=== PATIENT | female | born 1960 | race Asian ===

== ENCOUNTER 2017-10-29 01:35 | Emergency (ER) | payer OTHER ==
[~2017-10-29] VITALS: Ht 165.1 cm; Wt 74.8 kg
[2017-10-29] MEDS ORDERED: ETOMIDATE (2MG/ML) 20ML VIAL IV ONE ×2 (01:39→03:30)
[2017-10-29] MEDS ORDERED: SUCCINYLCHOLINE CHLORIDE 20 MG/ML 10ML VIAL IV ONE ×2 (01:40→03:30)
[2017-10-29 02:26] LABS: Urine Bacteria MOD /hpf (None Seen); Urine Blood 2+ /uL (Negative); Urine Specific Gravity 1.029 (1.001-1.035); Urine WBC 2 /hpf (0 - 5)
[2017-10-29 02:38] LABS: Alcohol, Urine < 3.0 mg/dL (0-5); Amphetamine Screen, Urine NEGATIVE (NEGATIVE); Barbiturate Scree,Urine NEGATIVE (NEGATIVE); Benzodiazephine Screen, Urine NEGATIVE (NEGATIVE); Cannabinoid Screen, Urine NEGATIVE (NEGATIVE); Cocaine Screen, Urine NEGATIVE (NEGATIVE); Opiate Scree,Urine POSITIVE (NEGATIVE); Phencyclidine Screen, Urine NEGATIVE (NEGATIVE)
[2017-10-29 02:45] LABS: Mean Corpuscular Hemoglobin 30.4 pg (28.0-32.0); Red Blood Cells 4.36 10^6/uL (4.0-5.20)
[2017-10-29 02:47] LABS: Hematocrit 43.8 % (36.0-46.0); Hemoglobin 13.3 g/dL (12.2-16.2); Mean Corpuscular Hgb Conc. 30.3 g/dL (32.0-36.0); Mean Corpuscular Volume 100.3 fL (80.0-100.0); Platelet Count (auto) 111 10^3/uL (140-450); White Blood Cell 17.7 10^3/uL (4.4-10.8)
[2017-10-29] MEDS ORDERED: MIDAZOLAM DRIP 50 mg/50mL 50 ML IV SCH (03:06)
[2017-10-29 03:08] LABS: Basophils % (manual) 0 (0.0-2.0); Blast Cells 0; Eosinophils % (manual) 0 (0-7); Promyelocytes % 0
[2017-10-29] MEDS ORDERED: MIDAZOLAM DRIP 50 mg/50mL 50 ML IV ONE (03:14)
[2017-10-29] MEDS ORDERED: LACTATED RINGER'S 1,000 ML IV ONE (03:15)
[2017-10-29] MEDS ORDERED: LEVETIRACETAM INJ 500 MG in D5W 5% 100 ML IV ONE (03:15)
[2017-10-29] MEDS ORDERED: SODIUM CHLORIDE 0.9% 1,000 ML IV ONE ×3 (03:15→08:00)
[2017-10-29 03:25] LABS: Lactic Acid w/Reflex 16.4 mmol/L (0.4-2.0)
[2017-10-29 03:29] LABS: Albumin 1.9 g/dL (3.4-5.0); Calcium 10.4 mg/dL (8.5-10.1); Magnesium 3.8 mg/dL (1.6-2.6)
[2017-10-29 03:31] LABS: Potassium 6.2 mmol/L (3.5-5.1)
[2017-10-29] MEDS ORDERED: NOREPINEPHRINE 8 MG/250ML KIT 250 ML IV SCH (03:33)
[2017-10-29] MEDS ORDERED: NOREPINEPHRINE 8 MG/250ML KIT 250 ML IV ONE (03:35)
[2017-10-29 03:51] LABS: Total Protein 5.4 g/dL (6.4-8.2)
[2017-10-29 03:58] LABS: Band Neutrophils % (manual) 14; Lymphocytes % (manual) 32 (10.0-50.0); Metamyelocytes % 4; Monocytes % (manual) 5 (0-12); Myelocytes % 2; Reactive Lymphocytes 1
[2017-10-29] MEDS ORDERED: SODIUM BICARBONATE 8.4% INJ 50ML SYRINGE ONE ×3 (04:07→07:35)
[2017-10-29] MEDS ORDERED: SODIUM BICARBONATE 8.4 % INJ 50ML VIAL IV ONE ×5 (04:15→09:45)
[2017-10-29] MEDS ORDERED: DEXTROSE (50%) 50ML SYRG IV ONE (04:45)
[2017-10-29] MEDS ORDERED: InsuLIN REG 1unit/0.01ml Soln (100units/ml) IV ONE (04:45)
[2017-10-29] MEDS ORDERED: CALCIUM GLUC 4.65meq/50ml D5AE 50 ML IV ONE (04:45)
[2017-10-29] MEDS ORDERED: cefTRIAXone 1GM/10ml IVPUSH 10 ML IV ONE (04:45)
[2017-10-29] MEDS ORDERED: SODIUM POLYSTYRENE SULF 15GM/60ML SUSP PR ONE (06:15)
[2017-10-29] MEDS ORDERED: VANCOMYCIN PER PHARMACY 0 MG IV SCH (07:00)
[2017-10-29] MEDS ORDERED: MORPHINE SULFATE 4 MG/ML SYR/VIAL IV PRN ×2 (07:00→15:30)
[2017-10-29] MEDS ORDERED: HEPARIN SODIUM (PORCINE) 5000 UNITS/ML 1ML VIAL SC SCH (07:00)
[2017-10-29] MEDS ORDERED: IPRATROPIUM BROM 0.5 MG/2.5ML INH SOL NEB SCH (07:00)
[2017-10-29] MEDS ORDERED: VANCOMYCIN 1GM/250ML 250 ML IV ONE (07:00)
[2017-10-29] MEDS ORDERED: ONDANSETRON HCL 4 MG/2 ML VIAL IV PRN (07:00)
[2017-10-29] MEDS ORDERED: ALBUTEROL SULF 2.5 MG/0.5ML(0.5%) NEB SOLN NEB SCH (07:00)
[2017-10-29 07:11] VITALS: BP 86/61
[2017-10-29] MEDS ORDERED: BENA20TA14 PO (07:29)
[2017-10-29] MEDS ORDERED: TRAM50TA2 PO (07:29)
[2017-10-29] MEDS ORDERED: IBU600T PO (07:29)
[2017-10-29] MEDS ORDERED: HYDR12.527 PO (07:29)
[2017-10-29] MEDS ORDERED: HYDR-4798 PO (07:29)
[2017-10-29] MEDS ORDERED: SODIUM BICARBONATE 50ML VIAL 150 ML in D5W 5% 1,000 ML IV ONE (07:30)
[2017-10-29 08:19] LABS: Hematocrit 43.7 % (36.0-46.0); Hemoglobin 13.4 g/dL (12.2-16.2); Mean Corpuscular Hemoglobin 30.4 pg (28.0-32.0); Mean Corpuscular Hgb Conc. 30.6 g/dL (32.0-36.0); Mean Corpuscular Volume 99.5 fL (80.0-100.0); Platelet Count (auto) 95 10^3/uL (140-450); Red Blood Cells 4.39 10^6/uL (4.0-5.20); White Blood Cell 20.2 10^3/uL (4.4-10.8)
[2017-10-29 08:22] VITALS: BP 83/54
[2017-10-29 08:52] LABS: Albumin 1.8 g/dL (3.4-5.0); BUN/Creatinine Ratio 14.5; Bilirubin, Total 7.8 mg/dL (0.2-1.0); Calcium 10.1 mg/dL (8.5-10.1); Total Protein 5.5 g/dL (6.4-8.2)
[2017-10-29 09:00] LABS: Potassium 5.7 mmol/L (3.5-5.1)
[2017-10-29 09:41] LABS: Basophils % (manual) 0 (0.0-2.0); Blast Cells 0; Eosinophils % (manual) 0 (0-7); Metamyelocytes % 0; Myelocytes % 0; Promyelocytes % 0; Reactive Lymphocytes 0
[2017-10-29 09:42] LABS: Band Neutrophils % (manual) 6; Lymphocytes % (manual) 25 (10.0-50.0); Monocytes % (manual) 5 (0-12)
[2017-10-29 10:33] LABS: INR 1.9 (0.9-1.15); Prothrombin Time 20.9 sec (9.37-12.3)
[2017-10-29 10:44] VITALS: BP 98/59
[2017-10-29] MEDS ORDERED: MORPHINE SUL PCA 50 ML IV SCH ×2 (11:08→12:30)
[2017-10-29] MEDS ORDERED: MORPHINE SULFATE 100 MG in D5W 5% 90 ML IV SCH ×2 (11:50→11:53)
[2017-10-29] MEDS ORDERED: MORPHINE SULFATE IV SCH ×2 (12:30)
[2017-10-29] MEDS ORDERED: SODIUM CHL 0.9% IV SCH ×2 (12:30)
[2017-10-29 12:35] VITALS: BP 152/65
[2017-10-29 13:15] VITALS: BP 115/65
[2017-10-29] MEDS ORDERED: PIPERACILLIN-TAZOB 2.25GM 50 ML IV SCH (14:00)
== END 2017-10-29 16:41 | disposition expired ==
LOC: EDBD 01:35 → ER 01:40
DX: R41.82 Altered mental status, unspecified (principal); A41.9 Sepsis, unspecified organism; G93.41 Metabolic encephalopathy; J96.00 Acute respiratory failure, unspecified whether with hypoxia or hypercapnia; N17.9 Acute kidney failure, unspecified; K72.00 Acute and subacute hepatic failure without coma; Z85.3 Personal history of malignant neoplasm of breast
CPT/HCPCS: 31500; 36415; 36556; 36600; 70450; 71045; 74176; 76700; 80053; 80307; 80320; 81001; 82140; 82805; 82962; 83605; 83735; 83880; 84132; 84439; 84443; 84484; 85007; 85027; 85610; 87040; 87070; 87077; 87086; 87088; 87186; 87205; 93005; 96361; 96365; 96367; 96372; 96375; 96376; 99285; J0330; J0610; J1644; J2250; J2270; J3370; J7030; J7042; J7070; 94002; 94003; J7060